=== PATIENT | female | born 1975 | race Caucasian/White ===

== ENCOUNTER 2017-02-06 19:17 | Emergency (ER) | payer MEDICAID ==
[2017-02-06 22:30] VITALS: BP 127/73
== END 2017-02-06 22:30 | disposition home or self-care (01) ==
LOC: ED 19:17
DX: M75.92 Shoulder lesion, unspecified, left shoulder (principal)
CPT/HCPCS: J1030

== ENCOUNTER 2018-05-15 08:51 | Emergency (ER) | payer MEDICAID ==
[~2018-05-15] VITALS: Ht 160 cm; Wt 91.2 kg
[2018-05-15 08:59] VITALS: Ht 160 cm; Wt 91.2 kg
[2018-05-15 09:54] VITALS: BP 112/76
== END 2018-05-15 09:35 | disposition home or self-care (01) ==
LOC: ED 08:51
DX: M54.5 Low back pain (principal)
CPT/HCPCS: J1200; J1885; J2270

== ENCOUNTER 2018-05-21 10:06 | Emergency (ER) | payer MEDICAID ==
[~2018-05-21] VITALS: Ht 162.6 cm; Wt 91.2 kg
[2018-05-21 10:21] VITALS: Ht 162.6 cm; Wt 91.2 kg
[2018-05-21 11:36] VITALS: BP 113/58
== END 2018-05-21 11:36 | disposition home or self-care (01) ==
LOC: ED 10:06
DX: M54.41 Lumbago with sciatica, right side (principal)
CPT/HCPCS: J1885